=== PATIENT | female | born 1945 | race Caucasian/White ===

== ENCOUNTER 2022-05-02 11:17 | Day surgery (SDC) | payer MEDICARE, MEDICAID ==
[2022-04-28 13:58] LABS: BASOPHILS % (AUTO) 0.6 % (0-1); EOSINOPHILS # (AUTO) 0.2 X10'3 (0-0.9); EOSINOPHILS % (AUTO) 2.5 % (0-6); HEMATOCRIT 34.1 % (35.0-45.0); HEMOGLOBIN 10.7 g/dl (12.0-16.0); LYMPHOCYTES # (AUTO) 1.6 X10'3 (1.1-4.8); LYMPHOCYTES % (AUTO) 24.1 % (21-51); MEAN CORPUSCULAR HEMOGLOBIN 25.8 PG (27.0-31.0); MEAN CORPUSCULAR HGB CONC 31.3 g/dL (33.0-36.5); MEAN CORPUSCULAR VOLUME 82.6 FL (78-98); MEAN PLATELET VOLUME 7.7 FL (7.4-10.4); MONOCYTES # (AUTO) 0.6 X10'3 (0-0.9); MONOCYTES % (AUTO) 9.8 % (2-12); NEUTROPHILS # (AUTO) 4.2 X10'3 (1.8-7.7); PLATELET COUNT 363 X10'3 (140-440); RED BLOOD COUNT 4.13 X10'6 (4.20-5.60); RED CELL DISTRIBUTION WIDTH 19.1 % (11.5-14.5); WHITE BLOOD COUNT 6.6 X10'3 (4.5-11.0)
[2022-04-28 14:07] LABS: APTT 27 SECONDS (22-32)
[2022-04-28 14:08] LABS: ALBUMIN 3.7 G/DL (3.4-5.0); ANION GAP 7 (8-16); BLOOD UREA NITROGEN 12 MG/DL (7-18); BUN/CREATININE RATIO 20.3 (6.6-38.0); CALCIUM 8.6 MG/DL (8.5-10.1); CHLORIDE 101 MMOL/L (99-107); CHOL/HDL RATIO 3.5 (0.00-4.99); CHOLESTEROL 204 MG/DL (0-200); CREATININE 0.59 MG/DL (0.40-0.90); GLUCOSE 134 MG/DL (70-104); HDL CHOLESTEROL 58 MG/DL (35-60); LDL CHOLESTEROL 121 MG/DL (50-100); SODIUM 141 MMOL/L (135-145); TOTAL CARBON DIOXIDE 33.3 MMOL/L (24-32); TRIGLYCERIDES 113 MG/DL (20-135); eGFR > 90 ML/MIN
[2022-04-28 14:26] LABS: ANISOCYTOSIS 2+; HYPOCHROMASIA 1+; PLATELET ESTIMATE NORMAL; POLYCHROMASIA FEW
[~2022-05-02] VITALS: Ht 170.2 cm; Wt 74.8 kg
[2022-05-02] VITALS (7 sets, daily range): BP systolic 108–128; BP diastolic 62–73
[2022-05-02] MEDS ORDERED: normal saline 1,000 ML IV SCH (11:45)
[2022-05-02] MEDS ORDERED: LORazepam 0.5 MG tablet PO PRN (11:45)
[2022-05-02] MEDS ORDERED: diphenhydrAMINE 25mg capsule PO PRN (11:45)
[2022-05-02] MEDS ORDERED: FERR240T15 PO (12:03)
[2022-05-02] MEDS ORDERED: ZAFI20TA14 PO (12:03)
[2022-05-02] MEDS ORDERED: VENL75CA61 PO (12:03)
[2022-05-02] MEDS ORDERED: ZINC PO (12:03)
[2022-05-02] MEDS ORDERED: BENA20TA83 PO (12:03)
[2022-05-02] MEDS ORDERED: LEVA15HF4 INH (12:03)
[2022-05-02] MEDS ORDERED: GABA-534 PO (12:03)
[2022-05-02] MEDS ORDERED: CALCIUM PO (12:03)
[2022-05-02] MEDS ORDERED: ADV50500 INH (12:03)
[2022-05-02] MEDS ORDERED: vitamin d3 PO (12:03)
[2022-05-02] MEDS ORDERED: VITA-268 PO (12:03)
[2022-05-02] MEDS ORDERED: NIA500ERT PO (12:03)
[2022-05-02] MEDS ORDERED: TIOT4MIS2 PO (12:03)
[2022-05-02] MEDS ORDERED: LANS15CA18 PO (12:03)
[2022-05-02] MEDS ORDERED: CETI-90 PO (12:03)
[2022-05-02] MEDS ORDERED: ASPI-611 PO (12:03)
[2022-05-02] MEDS ORDERED: METF-1203 PO (12:03)
[2022-05-02] MEDS ORDERED: HYDR-3972 PO (12:03)
[2022-05-02] MEDS ORDERED: nitroGLYCERIN-Tridil 50MG/D5W 250 ML IV ONE (12:13)
[2022-05-02] MEDS ORDERED: midazolam 1 mg/ML 2ml injection ONE (12:14)
[2022-05-02] MEDS ORDERED: heparin 1,000unit/ml 10ml vial 10 ML ONE (12:14)
[2022-05-02] MEDS ORDERED: verapamil 2.5 mg/ml inj IV ONE (12:14)
[2022-05-02] MEDS ORDERED: LIDOcaine 1%/PF 5ML 10 MG/ML VIAL ONE ×2 (12:14)
[2022-05-02] MEDS ORDERED: fentaNYL/PF 50MCG/1 ML 2ML syringe ONE (12:14)
[2022-05-02] MEDS ORDERED: iohexol 350MG/ML 100ml bottle IV ONE (12:14)
[2022-05-02] MEDS ORDERED: HYDROcodone/acetaminophen 5mg/325mg tablet PO PRN (15:10)
[2022-05-02] MEDS ORDERED: HYDROcodone/acetaminophen 10/325mg tab PO PRN (15:10)
== END 2022-05-02 17:10 | disposition home or self-care (01) ==
LOC: SSTAY O 11:17
PROVIDERS: ATTEND Student in an Organized Health Care Education/Training Program
DX: R07.9 Chest pain, unspecified (principal); J44.9 Chronic obstructive pulmonary disease, unspecified; I48.91 Unspecified atrial fibrillation; E11.9 Type 2 diabetes mellitus without complications; I10 Essential (primary) hypertension; I25.10 Atherosclerotic heart disease of native coronary artery without angina pectoris; Z79.899 Other long term (current) drug therapy; Z98.890 Other specified postprocedural states; Z88.0 Allergy status to penicillin; Z88.2 Allergy status to sulfonamides; Z88.6 Allergy status to analgesic agent; Z88.1 Allergy status to other antibiotic agents; Z79.82 Long term (current) use of aspirin; Z88.8 Allergy status to other drugs, medicaments and biological substances
CPT/HCPCS: 36415; 80048; 80061; 82948; 85025; 85610; 85730; 93005; 93458; 99152; C1769; C1894; J1644; J2250; J3010; J3490; J7030; Q0163; Q9967; 85008; A4615; A4620; A5120; A6258; A6402